=== PATIENT | female | born 1955 | race Caucasian/White ===

== ENCOUNTER → 2020-07-04 | Outpatient (CLI) | payer MEDICARE ==
--- NOTE | 2020-07-04 12:24 | RAD ---
MR#: [id number] Date of Study: 07/04/2020 Ordering Physician: ANDRES MCCOY, Referring Physician: ANDRES MCCOY, Tech: Fawn Morris RDMS, TOBIAST, RTR APPROVED REPORT Patient Location : OUT-PATIENT Indications Varicose Veins Venous Insufficiency Greater Saphenous Veins (GSV) Significant venous relux noted in the RIGHT GSV at the following levels : Superficial Femoral Junctio n, Proximal Thigh, Mid Thigh, Distal Thigh, Proximal Calf, Mid Calf, Distal Calf Significant venous relux noted in the LEFT GSV at the following levels : Superficial Femoral Junction , Proximal Thigh, Mid Thigh, Distal Thigh, Proximal Calf, Mid Calf, Distal Calf Findings Grayscale images of the saphenofemoral junctions are grossly unremarkable. Multiple venous varicosities throughout the thighs were noted. The right great saphenous vein measures 6.3 mm and has a reflux time of 2 seconds. The left great sa phenous vein measures 5.5 mm and has a maximum reflux time of 3.3 seconds. The left lesser saphenous vein is extremely tortuous with multiple varicosities associated with the o rigin and has a maximum reflux time of 2.5 seconds and measures 6.6 mm. The right lesser saphenous vein measures 3.8 mm and has no reflux noted. Critical Notification Critical Value: No <Conclusion> 1. Positive for reflux of the bilateral greater saphenous veins and left lesser saphenous vein with multiple left posterior thigh and calf varicosities Signed by : Kirk Ledesma, Electronically Approved : 07/04/2020 12:23:55
--- NOTE | 2020-07-04 15:57 | CARD ---
MR#: [id number] Date of Study: 07/04/2020 Ordering Physician: ANDRES RENEE, Referring Physician: ANDRES RENEE, Tech: Fawn Crouch APPROVED REPORT EXAM: Two-dimensional and M-mode echocardiogram with Doppler and color Doppler. Other Information Quality : AverageHR: 81bpm INDICATION Hypertension/HCVD RISK FACTORS Hyperlipidemia Diabetes 2D DIMENSIONS RVDd3.6 (2.9-3.5cm)Left Atrium(2D)3.3 (1.6-4.0cm) IVSd0.9 (0.7-1.1cm)Aortic Root(2D)2.7 (2.0-3.7cm) LVDd4.6 (3.9-5.9cm)LVOT Diameter2.1 (1.8-2.4cm) PWd0.9 (0.7-1.1cm)LVDs3.0 (2.5-4.0cm) FS (%) 34.7 %SV60.8 ml LVEF(%)63.9 (>50%) Aortic Valve AoV Peak Bib.118.0cm/sAoV VTI23.4cm AO Peak GR.5.6mmHgLVOT Peak Bib.88.4cm/s LVOT VTI 18.52cmAO Mean GR.3mmHg COREY (VMAX)1.54oh5TCS (VTI)2.65cm2 Mitral Valve MV E Yecbqhmf31.8cm/sMV DECEL [id number] MV A Hetndbvv73.7cm/sMV MKJ43fe E/A Ratio1.1MVA (PHT)3.27cm2 TDI E/Lateral E'8.5E/Medial E'6.8 Pulmonary Valve PV Peak Tfbzydad83.4cm/sPV Peak Grad.3mmHg Tricuspid Valve TR P. Lwxhmkhg040wl/sRAP JNARYIGQ0zfHo TR Peak Gr.33awPyRWYO33ssYc Pulmonary Vein S1 Vowfbhqh79.8cm/sD2 Wlgmxvkj40.5cm/s PVa kekscxfl238diqz LEFT VENTRICLE The left ventricle is normal size. There is normal left ventricular wall thickness. The left ventricu lar systolic function is normal. The Ejection Fraction is 55-60%. There is normal LV segmental wall m otion. Transmitral Doppler flow pattern is Grade II-pseudonormal filling dynamics. RIGHT VENTRICLE The right ventricle is normal size. There is normal right ventricular wall thickness. The right ventr icular systolic function is normal. ATRIA The left atrium size is normal. The right atrium size is normal. The interatrial septum is intact wit h no evidence for an atrial septal defect or patent foramen ovale as noted on 2-D or Doppler imaging. AORTIC VALVE The aortic valve is normal in structure and function. Doppler and Color Flow revealed no significant aortic regurgitation. There is no significant aortic valvular stenosis. Calculated aortic valve area is 6 cm2 with maximum pressure gradient of 3 mmHg and mean pressure gradient of 2.55 mmHg. MITRAL VALVE The mitral valve is normal in structure and function. There is no evidence of mitral valve prolapse. There is no mitral valve stenosis. Doppler and Color-flow revealed trace mitral regurgitation. TRICUSPID VALVE The tricuspid valve is normal in structure and function. Doppler and Color Flow revealed trace tricus pid regurgitation with an estimated PAP of 2.55 mmHg. There is no tricuspid valve stenosis. PULMONIC VALVE The pulmonic valve is not well visualized. Doppler and Color Flow revealed trace pulmonic valvular re gurgitation. GREAT VESSELS The aortic root is normal in size. The ascending aorta is Mildly dilated. The IVC is normal in size a nd collapses >50% with inspiration. PERICARDIAL EFFUSION There is no evidence of significant pericardial effusion. Critical Notification Critical Value: No <Conclusion> The left ventricular systolic function is normal. The Ejection Fraction is 55-60%. There is normal LV segmental wall motion. Trace mitral regurgitation. Trace tricuspid regurgitation with an estimated PAP of 2.55 mmHg. There is no evidence of significant pericardial effusion. Signed by : Andres Renee, Electronically Approved : 07/04/2020 15:57:32
== END ==
LOC: ECHO 07:33
PROVIDERS: ATTEND Internal Medicine Cardiovascular Disease
DX: I10 Essential (primary) hypertension (principal); I87.2 Venous insufficiency (chronic) (peripheral); I83.028 Varicose veins of left lower extremity with ulcer other part of lower leg
CPT/HCPCS: 93306; 93970

== ENCOUNTER → 2020-09-17 | Outpatient (CLI) | payer MEDICARE, OTHER ==
[~2020-09-17] MED LIST: LIDOCAINE 1%/EPI 1:100,000 50 ML, SODIUM BICARBONATE VIAL 5 MEQ in IV NORMAL SALINE 100... SQ STA
--- NOTE | 2020-09-17 11:05 | RAD ---
MR#: [id number] Date of Study: 09/17/2020 Ordering Physician: ANDRES MCCOY, Referring Physician: ANDRES MCCOY, Tech: Rio Keene MBA, RDMS, RVT, RDCS, RTR APPROVED REPORT Bilateral Lower Extremity Venous Study for DVT Patient Location: OUT-PATIENT Indications S/P VENASEAL Vein Imaging (Right) CFV (R): Compressible SFJ (R): Compressible FEM (R): Compressible POP (R): Compressible DFV (R): Compressible PTV (R): Spontaneous GSV (R): Absent Flow Peroneals (R): Spontaneous Vein Imaging (Left) CFV (L): Compressible SFJ (L): Compressible FEM (L): Compressible POP (L): Compressible DFV (L): Compressible PTV (L): Spontaneous GSV (L): Absent Flow Peroneals (L): Spontaneous Doppler Evaluation (Right) CFV (R): Spontaneous POP (R):Spontaneous Doppler Evaluation (Left) CFV (L):Spontaneous POP (L):Spontaneous Findings The bilateral lower extremity deep veins were evaluated for thrombus with color Doppler, spectral and grayscale images. On the right the grayscale images of the common femoral, superficial femoral and popliteal veins do n ot demonstrate any evidence of thrombus and these veins appear to be compressible. The below-knee vei ns were not well visualized but grossly appear to be compressible. Spectral imaging and color Doppler do not reveal any evidence of obstruction to flow with normal respirophasic variation above the knee . Below the knee there is spontaneous flow noted. On the left, the grayscale images of the common femoral, superficial femoral and popliteal veins do n ot demonstrate any evidence of thrombus and these veins appear to be compressible. The below-knee vei ns again were not well visualized but grossly appear to be compressible. Spectral imaging and color D oppler do not reveal any evidence of obstruction to flow with normal respirophasic variation above th e knee. The below-knee veins demonstrate spontaneous flow. Occluded bilateral greater saphenous veins consistent with recent ablation. Critical Notification Critical Value: No <Conclusion> 1. No evidence of DVT in the bilateral lower extremities 2. Occluded bilateral greater saphenous veins consistent with recent ablation Signed by : Kirk Ledesma, Electronically Approved : 09/17/2020 11:05:05
== END ==
LOC: US 10:21
PROVIDERS: ATTEND Internal Medicine Cardiovascular Disease
DX: I82.813 Embolism and thrombosis of superficial veins of lower extremities, bilateral (principal); Z98.890 Other specified postprocedural states
CPT/HCPCS: 93970

== ENCOUNTER → 2020-10-28 | Outpatient (CLI) | payer MEDICARE ==
[~2020-10-28] MED LIST changes: -LIDOCAINE 1%/EPI 1:100,000 50 ML, SODIUM BICARBONATE VIAL 5 MEQ in IV NORMAL SALINE 100... SQ STA; +REGADENOSON 0.4 MG/5 ML DISP.SYRIN. IV ONE
--- NOTE | 2020-10-28 15:59 | RAD ---
MR#: [id number] Date of Study: 10/28/2020 Ordering Physician: ANDRES MCCOY, Referring Physician: MAXIMINO GLYNN Tech: BRENDA Ponce ARRT (R) (N) APPROVED REPORT Test Type: Pharmacological Stress Nurse/Tech: Tim Mcconnell RN Test Indications: Chest Pain Cardiac History: HTN, See EMR. Medications: ASA, See EMR. Medical History: DM, See EMR. Resting ECG: SR Resting Heart Rate: 77 bpm Resting Blood Pressure: 129/67mmHg Pretest Chest Pain: No chest pain Nurse/Tech Notes Lungs CTA, Heart tones regular. Consent: The procedure was explained to the patient in lay terms. Informed consent was witnessed. Lamont eout was entered into [facility]. History and Stress Test performed by RT Moises (R) (N) Pharm. Details Pharmacologic stress testing was performed using 0.4mg per 5ml of regadenoson given intravenously ove r 7-10 seconds. Stress Symptoms Nausea POST EXERCISE Reason for Termination: Infusion complete Max HR: 107 bpm Max Blood Pressure: 160/70mmHg Blood Pressure response to exercise: Normal blood pressure response during stress. Heart Rate response to exercise: WNL Chest Pain: No. Arrhythmia: No. ST Change: No. INTERPRETATION Stress EKG Conclusion: No evidence of stress induced EKG changes. Imaging Protocol IMAGE PROTOCOL: Rest Tc-99m/stress Tc-99m 1 day Rest: Stress: Viability: Radiopharm.Tc99m MnwawmkweBc77e Sestamibi Jxhi90mXy 31mCi Img Date 10/28/2020 10/28/2020 Inj-Img Rfmw91ree. 60min. Rest Admin Site:IV - Left AntecubitalAdministrator:BRENDA Ponce ARRT (R)(N) Stress Admin Site: IV - Left AntecubitalAdministrator: RT Krissy De Leon)(N) STRESS DATA End Diast. Vol.63.0mlAv. Heart Rate89.0bpm End Syst. Vol.9.0mlCO Index BSA0.0L/min Myocardial Taps141.0gEject. Iyvpptmh83.0% Stress Rates Pk. Fill Rate4.02EDV/secLVtime Pk. Fill 169.23msec Pk. Empty Rate5.92ESV/secLVtime Pk. Oluzv369.34msec 1/3 Pk. Fill0.78EDV/sec Stress Scores Regional WT1.00Summed WT4.00 Regional WM0.00Summed WM0.00 The rest and stress images show normal perfusion, normal contraction and thickening. LV Perf. Quant 17 Seg. SSS0.00 17 Seg. SRS0.00 17 Seg. SDS0.00 Stress Defect Extent (% LAD)0.00Rest Defect Extent (% LAD)0.00Rev. Defect Extent (% LAD)0.00 Stress Defect Extent (% LCX) 0.00Rest Defect Extent (% LCX)0.00Rev. Defect Extent (% LCX)0.00 Stress Defect Extent (% RCA)0.00Rest Defect Extent (% RCA)0.00Rev. Defect Extent (% RCA)0.00 Stress Defect Extent (% ITALO)0.00Rest Defect Extent (% ITALO)0.00Rev. Defect Extent (% ITALO)0.00 Other Information Quality:Good Risk Assessment: Low Risk Conclusion 1. No evidence of EKG changes with stress testing. 2. Normal perfusion at stress/rest. 3. Low risk study. 4. EF > 60%. Signed by : Kirk Ledesma, Electronically Approved : 10/28/2020 15:59:23
== END ==
LOC: NM 08:56
PROVIDERS: ATTEND Internal Medicine Cardiovascular Disease
DX: I10 Essential (primary) hypertension (principal)
CPT/HCPCS: 78452; 93017; A9500; J2785